=== PATIENT | male | born 1965 | race Hispanic/Latino ===

== ENCOUNTER 2018-05-31 18:36 | Emergency (ER) | payer OTHER ==
[2018-05-31] MEDS ORDERED: DiphenhydrAMINE HCL 25 MG/10 ML ELIXIR UDCUP ONE (19:13)
[2018-05-31] MEDS ORDERED: GUAIFENESIN-DM 200/20 MG 10 ML ONE (19:13)
[2018-05-31] MEDS ORDERED: IPRATROPIUM/ALBUTEROL SULFATE 3 ML SOLUTION IH ONE (19:21)
[2018-05-31 19:31] LABS: BASOPHILS % (AUTO) 1.2 % (0.0-5.0); EOSINOPHILS % (AUTO) 5.6 % (0.0-8.0); HEMATOCRIT 45.5 % (42-54); LYMPHOCYTES % (AUTO) 15.4 % (21.0-51.0); MEAN CORPUSCULAR HEMOGLOBIN 33.1 pg (27.0-33.0); MEAN CORPUSCULAR HGB CONC 35.1 g/dL (32.0-36.0); MEAN CORPUSCULAR VOLUME 94.4 fL (79-99); MONOCYTES % (AUTO) 12.1 % (3.0-13.0); NEUTROPHILS % (AUTO) 65.7 % (40.0-77.0); PLATELET COUNT (AUTO) 234 K/uL (130-400); RED BLOOD CELL COUNT(AUTO) 4.82 MIL/uL (4.50-6.20); RED CELL DISTRIBUTION WIDTH 12.7 % (11.0-15.5); WHITE BLOOD COUNT (AUTO) 10.6 K/uL (4.8-10.8)
[2018-05-31 19:43] LABS: CREATININE 1.1 mg/dL (0.5-1.5); POTASSIUM 3.9 mmol/L (3.5-5.1)
[2018-05-31 19:48] LABS: BILIRUBIN,TOTAL 0.7 mg/dL (0.2-1.0)
== END 2018-05-31 20:13 | disposition home or self-care (01) ==
LOC: EDH 18:36
DX: J20.9 Acute bronchitis, unspecified (principal)
CPT/HCPCS: 36415; 71045; 80053; 82550; 84484; 85025; 87804; 93005; 94640

== ENCOUNTER 2022-12-19 10:16 | Inpatient (IN) | payer OTHER ==
[~2022-12-19] VITALS: Ht 175.3 cm; Wt 99.4 kg
[2022-12-19] MEDS ORDERED: ALBUTEROL 0.083% 2.5 MG/3 ML INH IH ONE ×2 (10:30→11:30)
[2022-12-19 10:39] LABS: BASOPHILS % (AUTO) 0.7 % (0.0-5.0); EOSINOPHILS % (AUTO) 3.9 % (0.0-8.0); HEMATOCRIT 40.4 % (42-54); LYMPHOCYTES % (AUTO) 15.5 % (21.0-51.0); MEAN CORPUSCULAR HEMOGLOBIN 32.6 pg (27.0-33.0); MEAN CORPUSCULAR HGB CONC 33.9 g/dL (32.0-36.0); MEAN CORPUSCULAR VOLUME 96.2 fL (79-99); MONOCYTES % (AUTO) 14.5 % (3.0-13.0); NEUTROPHILS % (AUTO) 64.8 % (40.0-77.0); PLATELET COUNT (AUTO) 223 K/uL (130-400); WHITE BLOOD COUNT (AUTO) 6.9 K/uL (4.8-10.8)
[2022-12-19 10:52] LABS: ALBUMIN 3.6 g/dL (3.5-5.0); CREATININE 0.9 mg/dL (0.5-1.5); POTASSIUM 3.4 mmol/L (3.5-5.1)
[2022-12-19 10:56] LABS: APPEARANCE,URINE CLEAR (CLEAR); BILIRUBIN,URINE NEGATIVE (NEGATIVE); COLOR,URINE LIGHT-YELLOW (YELLOW); GLUCOSE, URINE (UA) NEGATIVE (NEGATIVE); KETONES,URINE NEGATIVE (NEGATIVE); LEUKOCYTE ESTERASE ,URINE NEGATIVE Leu/uL (NEGATIVE); NITRATE,URINE NEGATIVE (NEGATIVE); OCCULT BLOOD,URINE NEGATIVE (NEGATIVE); PROTEIN,URINE NEGATIVE (NEGATIVE); UROBILINOGEN,URINE 0.2 mg/dL (0.2-1.0)
[2022-12-19] MEDS ORDERED: ASPIRIN 325MG TAB PO ONE (11:30)
[2022-12-19] MEDS ORDERED: 0.9%NACL 1000ML 1,000 ML IV ONE (11:30)
[2022-12-19] MEDS ORDERED: NITROGLYCERIN 1GM OINT 1 INCH/1GM TD ONE (11:30)
[2022-12-19] MEDS ORDERED: GUAIFENESIN/DEXTROMETHORPHAN 1 EACH TAB.SR.12H PO ONE (11:30)
[2022-12-19] MEDS ORDERED: ENOXAPARIN SODIUM 100 MG/1 ML SQ ONE (11:30)
[2022-12-19] MEDS ORDERED: ACETAMINOPHEN 325 MG TAB PO PRN (14:30)
[2022-12-19] MEDS ORDERED: POTASSIUM CHLORIDE 10% ELIXIR 20 MEQ/15 ML UDCUP PO ONE (14:30)
[2022-12-19] MEDS ORDERED: BUDESONIDE 0.5 MG/2 ML INH IH SCH (14:30)
[2022-12-19] MEDS ORDERED: ONDANSETRON 4MG INJ IVP PRN (14:30)
[2022-12-19 14:52] LABS: HEMOGLOBIN A1C 5.7 % (4.0-6.0)
[2022-12-19] MEDS: IPRATROPIUM/ALBUTEROL SULFATE 3 ML SOLUTION IH SCH ×2 (15:00→17:35)
[2022-12-19] MEDS: SOLU-MEDROL 40MG VIAL IVP SCH ×2 (15:51→23:29)
[2022-12-19] MEDS: DOXYCYCLINE 100MG+NS 250ML IV SCH (15:51)
[2022-12-19] MEDS: CEFTRIAXONE 1G VIAL IVPB SCH (15:51)
[2022-12-19] MEDS: Vitamin B Complex/Vit C/Folic Acid PO SCH (15:52)
[2022-12-19] MEDS: PANTOPRAZOLE 40 MG TAB DR PO SCH (15:52)
[2022-12-19] MEDS ORDERED: LORAZEPAM 2 MG/ML 1 ML VIAL IVP PRN (16:00)
[2022-12-19] MEDS ORDERED: PHARMACY COMMUNICATION MISC PRN (16:00)
[2022-12-19] MEDS ORDERED: CHLORDIAZEPOXIDE HCL 25 MG CAP PO PRN (16:00)
[2022-12-19 16:23] LABS: MAGNESIUM 2.1 mg/dL (1.80-2.40); THYROID STIMULATING HORMONE 2.11 uIU/mL (0.36-3.74)
[2022-12-19] MEDS: INSULIN HUMULIN R 100 UNIT/ML 3ML SQ SCH ×2 (16:30→21:00)
[2022-12-19] MEDS ORDERED: BUDESONIDE 0.5 MG/2 ML INH IH ONE (16:39)
[2022-12-19 16:46] LABS: INR 0.97 (0.85-1.15); PROTHROMBIN TIME 10.6 SEC (9.6-11.6)
[2022-12-19 16:47] LABS: PARTIAL THROMBOPLASTIN TIME 33.7 SEC (26.3-35.5)
[2022-12-19] MEDS: BUDESONIDE 0.5 MG/2 ML INH IH SCH (17:35)
[2022-12-19] MEDS: M.V.I. 10 ML, FOLIC ACID 1 MG, THIAMINE HCL 100 MG in 0.9%NACL 1000ML IV SCH (18:57)
[2022-12-19 21:12] LABS: AMPHET/METH SCREEN,URINE NEGATIVE (NEGATIVE); BARBITURATE SCREEN, URINE NEGATIVE (NEGATIVE); BENZODIAZEPINES SCREEN,URINE POSITIVE (NEGATIVE); CANNABINOID SCREEN,URINE POSITIVE (NEGATIVE); COCAINE SCREEN,URINE POSITIVE (NEGATIVE); OPIATE SCREEN,URINE NEGATIVE (NEGATIVE); PHENCYCLIDINE SCREEN,URINE NEGATIVE (NEGATIVE)
[2022-12-19 22:20] VITALS: BP 139/84
[2022-12-19] MEDS ORDERED: SODIUM CHLORIDE 3% FOR INHALATION 4 ML/AMP VIAL.NEB IH ONE (22:59)
[2022-12-20] MEDS: CEFTRIAXONE 1G VIAL IVPB SCH ×2 (01:32→14:38)
[2022-12-20] MEDS: DOXYCYCLINE 100MG+NS 250ML IV SCH ×2 (01:32→14:38)
[2022-12-20] MEDS: IPRATROPIUM/ALBUTEROL SULFATE 3 ML SOLUTION IH SCH ×5 (03:51→23:47)
[2022-12-20 04:00] VITALS: BP 160/85
[2022-12-20 04:45] LABS: BASOPHILS % (AUTO) 0.3 % (0.0-5.0); EOSINOPHILS % (AUTO) 0.1 % (0.0-8.0); HEMATOCRIT 41.2 % (42-54); LYMPHOCYTES % (AUTO) 8.3 % (21.0-51.0); MEAN CORPUSCULAR HEMOGLOBIN 32.2 pg (27.0-33.0); MEAN CORPUSCULAR HGB CONC 33.3 g/dL (32.0-36.0); MEAN CORPUSCULAR VOLUME 96.7 fL (79-99); NEUTROPHILS % (AUTO) 87.6 % (40.0-77.0); PLATELET COUNT (AUTO) 251 K/uL (130-400); RED BLOOD CELL COUNT(AUTO) 4.26 MIL/uL (4.50-6.20); RED CELL DISTRIBUTION WIDTH 12.8 % (11.0-15.5); WHITE BLOOD COUNT (AUTO) 7.2 K/uL (4.8-10.8)
[2022-12-20 05:07] LABS: ALANINE AMINOTRANSFERASE 46 U/L (12-78); ALBUMIN 3.5 g/dL (3.5-5.0); ASPARTATE AMINOTRANSFERASE 22 U/L (10-37); CARBON DIOXIDE 27 mmol/L (21-32); CHLORIDE 104 mmol/L (101-111); CREATININE 0.7 mg/dL (0.5-1.5); GLOMERULAR FILTR. RATE CALC 108 mL/min (>90); GLUCOSE,RANDOM 189 mg/dL (70-105); POTASSIUM 4.5 mmol/L (3.5-5.1); SODIUM SERUM 137 mmol/L (136-145); TOTAL PROTEIN, SERUM 7.1 g/dL (6.0-8.3); UREA NITROGEN, BLOOD 8 mg/dL (7-18)
[2022-12-20 05:08] LABS: CRP QUANTITATIVE < 2.00 mg/L (0.00-9.0)
[2022-12-20] MEDS: INSULIN HUMULIN R 100 UNIT/ML 3ML SQ SCH ×4 (05:52→20:10)
[2022-12-20] MEDS: SOLU-MEDROL 40MG VIAL IVP SCH (05:59)
[2022-12-20] MEDS: PANTOPRAZOLE 40 MG TAB DR PO SCH (06:37)
[2022-12-20] MEDS: BUDESONIDE 0.5 MG/2 ML INH IH SCH ×2 (06:41→19:27)
[2022-12-20 08:00] VITALS: BP 132/71
[2022-12-20] MEDS: AMLODIPINE 5 MG TAB PO SCH (09:04)
[2022-12-20] MEDS: ENOXAPARIN SODIUM 40 MG/0.4 ML SYRINGE SQ SCH (09:04)
[2022-12-20 12:00] VITALS: BP 145/76
[2022-12-20] MEDS: Vitamin B Complex/Vit C/Folic Acid PO SCH (14:38)
[2022-12-20 16:00] VITALS: BP 131/80
[2022-12-20] MEDS: M.V.I. 10 ML, FOLIC ACID 1 MG, THIAMINE HCL 100 MG in 0.9%NACL 1000ML IV SCH (17:00)
[2022-12-20 19:00] VITALS: BP 143/77
[2022-12-20] MEDS ORDERED: THIAMINE HCL 100 MG/ML 2ML VIAL IVP ONE (20:00)
[2022-12-21] VITALS: BP 137/82
[2022-12-21] MEDS ORDERED: CEFTRIAXONE 2GM VIAL IVPB SCH (02:00)
[2022-12-21] MEDS: DOXYCYCLINE 100MG+NS 250ML IV SCH (02:19)
[2022-12-21 04:00] VITALS: BP 153/90
[2022-12-21] MEDS: INSULIN HUMULIN R 100 UNIT/ML 3ML SQ SCH ×2 (05:58→11:30)
[2022-12-21] MEDS: PANTOPRAZOLE 40 MG TAB DR PO SCH (06:18)
[2022-12-21] MEDS: IPRATROPIUM/ALBUTEROL SULFATE 3 ML SOLUTION IH SCH ×2 (06:21→11:14)
[2022-12-21] MEDS: BUDESONIDE 0.5 MG/2 ML INH IH SCH (06:21)
[2022-12-21 06:50] LABS: BASOPHILS % (AUTO) 0.2 % (0.0-5.0); EOSINOPHILS % (AUTO) 0.5 % (0.0-8.0); HEMATOCRIT 38.8 % (42-54); LYMPHOCYTES % (AUTO) 17.1 % (21.0-51.0); MEAN CORPUSCULAR HEMOGLOBIN 32.5 pg (27.0-33.0); MEAN CORPUSCULAR HGB CONC 33.5 g/dL (32.0-36.0); MONOCYTES % (AUTO) 7.6 % (3.0-13.0); PLATELET COUNT (AUTO) 244 K/uL (130-400); WHITE BLOOD COUNT (AUTO) 12.3 K/uL (4.8-10.8)
[2022-12-21 07:00] LABS: CREATININE 0.8 mg/dL (0.5-1.5); POTASSIUM 3.6 mmol/L (3.5-5.1)
[2022-12-21 08:00] VITALS: BP 149/76
[2022-12-21] MEDS: ENOXAPARIN SODIUM 40 MG/0.4 ML SYRINGE SQ SCH (08:55)
[2022-12-21] MEDS: AMLODIPINE 5 MG TAB PO SCH (08:55)
[2022-12-21] MEDS ORDERED: THIAMINE HCL 100 MG TABLET PO SCH (09:00)
[2022-12-21] MEDS ORDERED: PREDNISONE 20 MG TABLET PO SCH (09:00)
[2022-12-21] MEDS ORDERED: PRED20TA3 PO ×2 (11:37→11:39)
[2022-12-21] MEDS ORDERED: ALBUHFA IH (11:37)
[2022-12-21] MEDS ORDERED: AMOX-426 PO (11:37)
[2022-12-21] MEDS ORDERED: FLUT1AER IH (11:37)
[2022-12-21 12:00] VITALS: BP 143/88
[2022-12-21] MEDS ORDERED: AMLO-257 PO (12:29)
== END 2022-12-21 13:30 | disposition home or self-care (01) | DRG 189 ==
LOC: EDH 10:16 → EDHIP 10:17 → 4DH 22:25
PROVIDERS: ADMIT Internal Medicine; ATTEND Internal Medicine
DX: J96.01 Acute respiratory failure with hypoxia (principal); I10 Essential (primary) hypertension; Z20.822 Contact with and (suspected) exposure to COVID-19; E66.09 Other obesity due to excess calories; F17.200 Nicotine dependence, unspecified, uncomplicated; J43.9 Emphysema, unspecified; F14.10 Cocaine abuse, uncomplicated; F12.10 Cannabis abuse, uncomplicated; F10.10 Alcohol abuse, uncomplicated; J20.9 Acute bronchitis, unspecified
CPT/HCPCS: 36415; 71045; 71250; 80048; 80053; 80305; 81003; 82550; 82948; 83036; 83735; 83874; 83880; 84145; 84443; 84484; 85025; 85378; 85610; 85730; 86140; 87071; 87077; 87186; 87205; 87635; 87804; 93005; 93306; 93356; 94640; 94664; 94667; 94668; 94760; C9803; G0378; J0696; J1650; J2920; J3411; J3490; J7030

== ENCOUNTER 2023-06-08 09:20 | Emergency (ER) | payer OTHER ==
[~2023-06-08] VITALS: Ht 175.3 cm; Wt 95.3 kg
[~2023-06-08 09:20] MED LIST: ALBUHFA IH; AMLO-257 PO; AMOX-426 PO; FLUT1AER IH; PRED20TA3 PO
[2023-06-08 09:46] LABS: BASOPHILS # (AUTO) 0.06 K/uL (0.00-0.20); BASOPHILS % (AUTO) 0.6 % (0.0-5.0); EOSINOPHILS # (AUTO) 0.35 K/uL (0.00-0.70); EOSINOPHILS % (AUTO) 3.7 % (0.0-8.0); HEMATOCRIT 41.3 % (42-54); IMMATURE GRANULOCYTE ABSOLUTE 0.05 K/uL (0-1); LYMPHOCYTES # (AUTO) 0.8 K/uL (1.0-4.8); MEAN CORPUSCULAR HEMOGLOBIN 33.8 pg (27.0-33.0); MEAN CORPUSCULAR HGB CONC 35.1 g/dL (32.0-36.0); MEAN CORPUSCULAR VOLUME 96.3 fL (79-99); MONOCYTES # (AUTO) 0.9 K/uL (0.1-1.0); NEUTROPHILS # (AUTO) 7.1 K/uL (1.8-7.7); NEUTROPHILS % (AUTO) 76.2 % (40.0-77.0); PLATELET COUNT (AUTO) 204 K/uL (130-400); RED BLOOD CELL COUNT(AUTO) 4.29 MIL/uL (4.50-6.20); WHITE BLOOD COUNT (AUTO) 9.4 K/uL (4.8-10.8)
[2023-06-08 09:54] LABS: CREATININE 0.8 mg/dL (0.5-1.5); POTASSIUM 3.7 mmol/L (3.5-5.1)
[2023-06-08 09:56] LABS: SARS-CoV-2, RNA, NAAT NEGATIVE SARS CoV-2 (NEGATIVE)
[2023-06-08 09:59] LABS: INFLUENZA TYPE A Negative For Type A (NEGATIVE); INFLUENZA TYPE B Negative For Type B (NEGATIVE)
[2023-06-08 10:02] LABS: ALBUMIN 3.3 g/dL (3.5-5.0); BILIRUBIN,TOTAL 1.3 mg/dL (0.2-1.0); TOTAL PROTEIN, SERUM 7.1 g/dL (6.0-8.3)
[2023-06-08] MEDS ORDERED: AZIT250T9 PO ×2 (10:15)
[2023-06-08 10:22] VITALS: PULSE 92; RESP 18
[2023-06-08] MEDS ORDERED: IPRATROPIUM/ALBUTEROL SULFATE 3 ML SOLUTION IH ONE (10:30)
[2023-06-08] MEDS ORDERED: PRED20TA3 PO (10:31)
[2023-06-08] MEDS ORDERED: PRED50TA2 PO (10:33)
[2023-06-08 10:37] LABS: B-TYPE NATRIURETIC PEPTIDE 14 pg/mL (0-100)
[2023-06-08 10:40] VITALS: BP 159/85; PULSE 88; RESP 16; O2SAT 95
== END 2023-06-08 10:42 | disposition home or self-care (01) ==
LOC: EDH 09:20
DX: J44.1 Chronic obstructive pulmonary disease with (acute) exacerbation (principal); F17.200 Nicotine dependence, unspecified, uncomplicated; Z20.822 Contact with and (suspected) exposure to COVID-19; Z79.899 Other long term (current) drug therapy; Z98.890 Other specified postprocedural states
CPT/HCPCS: 99285; 71045; 87635; 84484; 80053; 83880; 85025; 87804 ×2; 36415; 93005; 94640; C9803